=== PATIENT | male | born 1995 | race Caucasian/White ===

== ENCOUNTER 2017-06-30 22:39 | Emergency (ER) | payer SELFPAY ==
[~2017-06-30] VITALS: Ht 180.3 cm; Wt 81.9 kg
[~2017-06-30 22:39] MED LIST: OMEG10007 PO; PROT1POW PO; TAUR500C PO; [UNRECOGNIZED DRUG - OTHER] PO
[2017-06-30 22:41] VITALS: TEMP 36.5; Ht 180.3 cm; Wt 81.9 kg
[2017-06-30] MEDS ORDERED: ONDANSETRON INJ 2 MG/ML 2 ML VIAL IV STA (22:55)
[2017-06-30] MEDS ORDERED: CHOL2000 PO (22:58)
[2017-06-30] MEDS ORDERED: ZINC30TA3 PO (22:58)
[2017-06-30 23:15] LABS: BASO % 0.1 %; BASO ABS # 0.01 K/uL (0-0.2); EOS % 1.6 %; EOS ABS # 0.11 K/uL (0-0.5); HEMATOCRIT 46.7 % (42-52); HEMOGLOBIN 16.3 g/dL (14.0-18.0); IG# 0.02 K/uL (0.00-0.02); LYMPH % 44.4 %; LYMPH ABS # 3.11 K/uL (1.2-3.4); MEAN CELL VOLUME 89.1 fL (80-100); MEAN CORPUSCULAR HEMOGLOBIN 31.1 pg (25-34); MEAN CORPUSCULAR HGB CONC 34.9 g/dl (32-36); MEAN PLATELET VOLUME 9.9 fL (7.4-10.4); MONO % 8.7 %; MONO ABS # 0.61 K/uL (0.11-0.59); NEUT % 44.9 %; NEUT ABS # 3.15 K/uL (1.4-6.5); PLATELET COUNT 184 K/uL (130-400); RED CELL DISTRIBUTION WIDTH CV 12.4 % (11.5-14.5); RED CELL DISTRIBUTION WIDTH SD 40.1 fL (36.4-46.3); WHITE BLOOD COUNT 7.01 K/uL (4.8-10.8)
[2017-06-30] MEDS: DICYCLOMINE HCL 10 MG/ML 2 ML AMP IM ONE ×2 (23:20→23:26)
[2017-06-30 23:26] VITALS: O2SAT 97
[2017-06-30 23:34] LABS: ALBUMIN 4.3 gm/dl (3.4-5.0); CALCIUM 9.2 mg/dl (8.5-10.1); CREATININE 1.25 mg/dl (0.60-1.40); POTASSIUM 3.6 mmol/L (3.5-5.1)
[2017-07-01] MEDS ORDERED: OPTIRAY 320 IV PRN (03:30)
--- NOTE | 2017-07-01 05:00 | EMERGENCY ROOM VISIT NOTE ---
History First contact with patient: 22:45 Chief Complaint: ABDOMINAL PAIN Stated Complaint: CRAMPING PAIN IN LOWER ABD Nursing Triage Summary: c/o dull pain in lower abd and nausea x 2 hours. History of Present Illness The patient is a 21 year old male who presents to the Emergency Room with complaints of nausea with cramping to the lower abdomen for the past 2 hours. Pain currently 4 out of 10. It does not radiate. Nothing makes it better or worse. Patient denies chest pain, dyspnea, vomiting, diarrhea, back pain, urinary symptoms, testicular pain, penile pain. He still has his appendix. Review of Systems See HPI for pertinent positives & negatives. A total of 10 systems reviewed and were otherwise negative. Past Medical/Surgical History Surgical Problems: (1) Hx of tonsillectomy Family History Cancer Heart disease Hypertension Lung disease Social History Smoking Status: Never Smoker Drug Use: none Marital Status: single Housing Status: lives with family Occupation Status: employed, [employer] student Current/Historical Medications Scheduled Cholecalciferol (Vitamin D3), 2,000 UNITS PO Q2D Fish Oil ([place]-3), 1 CAP PO DAILY Zinc Gluconate (Zinc), 1 TAB PO DAILY Physical Exam Vital Signs Date Time Temp Pulse Resp B/P (MAP) Pulse Ox O2 Delivery O2 Flow Rate FiO2 07/01/17 04:28 77 07/01/17 03:19 66 16 138/66 98 Room Air 07/01/17 00:58 86 20 122/49 100 Room Air 06/30/17 23:49 112 06/30/17 23:26 97 Room Air 06/30/17 22:41 36.5 126 18 140/91 100 Room Air Physical Exam VITALS: Vitals are noted on the nurse's note and reviewed by myself. Vital signs stable. GENERAL: Pleasant male, in no acute distress, nondiaphoretic, well-developed well-nourished. SKIN: The skin was without rashes, erythema, edema, or bruising. There is no tenting of the skin. Capillary reflex less than 2 seconds. HEAD: Normocephalic atraumatic. EARS: External auditory canals clear, tympanic membranes pearly hernandez without erythema or effusion bilaterally. EYES: Pupils equal round and reactive to light and accommodation. Conjunctivae without injection, sclerae without icterus. Extraocular movements intact. NOSE: Patent, turbinates without inflammation or discharge. MOUTH: Mucous membranes moist. Pharynx without erythema or exudate. Uvula midline. Airway patent. Tongue does not deviate. NECK: Supple without nuchal rigidity. No lymphadenopathy. No thyromegaly. Cervical spine is nontender. No JVD. HEART: Regular rate and rhythm without murmurs gallops or rubs. LUNGS: Clear to auscultation bilaterally without wheezes, rales or rhonchi. No dullness to percussion. No retractions or accessory muscle use. ABDOMEN: Positive bowel sounds x 4. Normal tympanic percussion. Soft, minimal tender lower abdomen, no CVA tenderness, without masses or organomegaly. Dietrich sign negative. No guarding or rebound tenderness. MUSCULOSKELETAL: No muscle atrophy, erythema, or edema noted. NEURO: Patient was alert and oriented to person place and time. Normal sensation to light and sharp touch. No focal neurological deficits. Medical Decision & Procedures Laboratory Results 06/30/17 23:04 Red Blood Count 5.24, Mean Corpuscular Volume 89.1, Mean Corpuscular Hemoglobin 31.1, Mean Corpuscular Hemoglobin Concent 34.9, Mean Platelet Volume 9.9, Neutrophils (%) (Auto) 44.9, Lymphocytes (%) (Auto) 44.4, Monocytes (%) (Auto) 8.7, Eosinophils (%) (Auto) 1.6, Basophils (%) (Auto) 0.1, Neutrophils # (Auto) 3.15, Lymphocytes # (Auto) 3.11, Monocytes # (Auto) 0.61, Eosinophils # (Auto) 0.11, Basophils # (Auto) 0.01 06/30/17 23:04 Test 06/30/17 23:04 White Blood Count 7.01 K/uL (4.8-10.8) Red Blood Count 5.24 M/uL (4.7-6.1) Hemoglobin 16.3 g/dL (14.0-18.0) Hematocrit 46.7 % (42-52) Mean Corpuscular Volume 89.1 fL (80-100) Mean Corpuscular Hemoglobin 31.1 pg (25-34) Mean Corpuscular Hemoglobin Concent 34.9 g/dl (32-36) Platelet Count 184 K/uL (130-400) Mean Platelet Volume 9.9 fL (7.4-10.4) Neutrophils (%) (Auto) 44.9 % Lymphocytes (%) (Auto) 44.4 % Monocytes (%) (Auto) 8.7 % Eosinophils (%) (Auto) 1.6 % Basophils (%) (Auto) 0.1 % Neutrophils # (Auto) 3.15 K/uL (1.4-6.5) Lymphocytes # (Auto) 3.11 K/uL (1.2-3.4) Monocytes # (Auto) 0.61 K/uL (0.11-0.59) Eosinophils # (Auto) 0.11 K/uL (0-0.5) Basophils # (Auto) 0.01 K/uL (0-0.2) RDW Standard Deviation 40.1 fL (36.4-46.3) RDW Coefficient of Variation 12.4 % (11.5-14.5) Immature Granulocyte % (Auto) 0.3 % Immature Granulocyte # (Auto) 0.02 K/uL (0.00-0.02) Urine Color YELLOW Urine Appearance CLEAR (CLEAR) Urine pH 5.0 (4.5-7.5) Urine Specific [place] 1.029 (1.000-1.030) Urine Protein NEG (NEG) Urine Glucose (UA) NEG (NEG) Urine Ketones NEG (NEG) Urine Occult Blood NEG (NEG) Urine Nitrite NEG (NEG) Urine Bilirubin NEG (NEG) Urine Urobilinogen NEG (NEG) Urine Leukocyte Esterase NEG (NEG) Anion Gap 9.0 mmol/L (3-11) Est Creatinine Clear Calc Drug Dose 99.5 ml/min Estimated GFR () 94.8 Estimated GFR (Non- 81.8 BUN/Creatinine Ratio 14.0 (10-20) Calcium Level 9.2 mg/dl (8.5-10.1) Total Bilirubin 0.4 mg/dl (0.2-1) Direct Bilirubin 0.1 mg/dl (0-0.2) Aspartate Amino Transf (AST/SGOT) 20 U/L (15-37) Alanine Aminotransferase (ALT/SGPT) 27 U/L (12-78) Alkaline Phosphatase 109 U/L (45-117) Total Protein 8.0 gm/dl (6.4-8.2) Albumin 4.3 gm/dl (3.4-5.0) Lipase 96 U/L (73-393) Medications Administered Medications (Trade) Dose Ordered Sig/Alhaji Route Start Time Stop Time Status Last Admin Dose Admin Ondansetron HCl (Zofran Inj) 4 mg NOW STAT IV 06/30/17 22:55 06/30/17 22:57 DC 06/30/17 23:20 4 MG ED Course Prior records/ancillary studies reviewed. Triage Nursing notes reviewed. The patient's history was concerning for abdominal pain. Differential diagnosis: Etiologies such as appendicitis, diverticulitis, PUD, biliary pathology, UTI, pancreatitis, obstruction, mesenteric ischemia, aortic pathology, infections, inflammatory bowel disease, renal colic, as well as others were entertained. Physical examination findings: As above. ER treatment provided: Malena Mason On reassessment the patient felt better. Diagnostics interpreted by me: The labs revealed no leukocytosis. Negative urine. Imaging studies: CT ABDOMEN & PELVIS With Contrast: Compared to 02/18/2016. Normal appendix. No evidence of bowel obstruction. Moderate amount of stool in the colon. Distended bladder. Small nonspecific mesenteric and retroperitoneal lymph nodes. Radiologist: Suzanne Perez M.D. Ultrasound unable to visualize appendix Exam and history seem consistent with mesenteric adenitis and constipation. Patient's pain persisted so further imaging was ordered. No appendicitis. He was advised to increase his fluid and fiber intake and take Colace for constipation. Patient had no leukocytosis. Negative urine. Patient is advised follow-up family care in a day or 2 or here in the ER sooner for abdominal pain, fevers, vomiting, worsening signs or symptoms or as needed. By the evaluation outlined above emergent etiologies such as appendicitis, diverticulitis, PUD, biliary pathology, UTI, pancreatitis, obstruction, mesenteric ischemia, aortic pathology, infections, inflammatory bowel disease, renal colic, as well as others were deemed relatively unlikely. The pt informed about the findings as listed above. All questions were answered and pleased with the treatment. Return instructions were outlined and the patient was discharged in stable condition. Referral: The patient was referred back to their primary care physician for follow-up in 2 to 3 days for a recheck of the current condition. Case reviewed with my attending. The chart was completed utilizing [employer] voice recognition software. Grammatical errors, random word insertions, pronoun errors, and incomplete sentences are an occassional consequence of this system due to software limitations, ambient noise, and hardware issues. Any formal questions or concerns about the content, text, or information contained within the body of this dictation should be directly addressed to the physician ob gyn physician assistant for clarification. Medical Decision As above Medication Reconcilliation Current Medication List: was personally reviewed by me Blood Pressure Screening Patient's blood pressure: Normal blood pressure Impression Primary Impression: Mesenteric adenitis Additional Impression: Constipation Departure Information Dispostion Home / Self-Care Condition GOOD Referrals Girma Vizcarra M.D.([facility]) (PCP) Patient Instructions My [facility] Additional Instructions Increase your fluid and fiber intake. Recommend taking Colace for constipation as needed. This is neem-ptt-lrodtgy. Rest and drink plenty of fluids as tolerated. Continue current medications. Avoid strenuous activities and anything that worsens your pain. Resume normal activities once your symptoms resolve. Return to the ER immediately for worsening or persistent abdominal pain, vomiting, fevers, chest pains, difficulty breathing, worsening of your condition , or as needed. Follow up with your primary physician in 2-3 days for a recheck of your current condition. Problem Qualifiers
[2017-07-01 05:05] VITALS: BP 146/71; PULSE 79; O2SAT 98
--- NOTE | 2017-07-01 07:02 | DIAGNOSTIC IMAGING REPORT ---
APPENDIX ULTRASOUND CLINICAL HISTORY: 21 years-old Male presenting with rlq pain. TECHNIQUE: Real-time grayscale and limited color Doppler ultrasound imaging of the right lower quadrant was performed to evaluate the appendix. COMPARISON: CT from 02/18/2016. FINDINGS: Appendix not visualized. No free fluid or hyperechogenic fat to suggest secondary signs of inflammation. IMPRESSION: Appendix not visualized, although no secondary signs of inflammation. This does not exclude the diagnosis of appendicitis. Electronically signed by: Estrada Hernández M.D. 07/01/2017 7:01 AM Dictated Date/Time: 07/01/2017 6:59 AM
--- NOTE | 2017-07-01 07:17 | DIAGNOSTIC IMAGING REPORT ---
CT OF THE ABDOMEN AND PELVIS WITH CONTRAST CLINICAL HISTORY: Right lower quadrant abdominal pain. Indeterminate ultrasound. COMPARISON STUDY: CT of the abdomen and pelvis February 08, 2016 and appendix ultrasound performed earlier today. TECHNIQUE: Following IV administration of 92 mL of Optiray-320, axial images of the abdomen and pelvis were obtained from the lung bases to the proximal femurs. Images were reviewed in the axial, sagittal, and coronal planes. IV contrast was administered without complication. A dose lowering technique was utilized adhering to the principles of ALARA. CT DOSE: 325.64 mGy.cm FINDINGS: Lung bases are clear. No pneumatosis, free air or portal venous gas is present. The liver, spine spleen, adrenal glands and kidneys are unremarkable. There is no biliary or pancreatic ductal dilatation. There is no hydronephrosis. Pelvic calcifications reflect phleboliths. Caliber and wall thickness of small and large bowel are normal. The appendix is normal. There is no free fluid. There is no lymphadenopathy or abscess. No suspicious skeletal lesions are present. IMPRESSION: No acute process within the abdomen or pelvis. Normal appendix. Electronically signed by: Rios Parish M.D. 07/01/2017 7:16 AM Dictated Date/Time: 07/01/2017 7:12 AM
== END 2017-07-01 05:26 | disposition home or self-care (01) ==
LOC: C.EDB 22:41
DX: I88.0 Nonspecific mesenteric lymphadenitis (principal); K59.00 Constipation, unspecified; Z98.890 Other specified postprocedural states; Z79.899 Other long term (current) drug therapy; Z80.9 Family history of malignant neoplasm, unspecified; Z82.49 Family history of ischemic heart disease and other diseases of the circulatory system